=== PATIENT | male | born 1995 | race Caucasian/White ===

== ENCOUNTER 2017-08-29 15:06 | Emergency (ER) | payer BC ==
[~2017-08-29] VITALS: Ht 175.3 cm; Wt 86.6 kg
[2017-08-29 16:08] VITALS: BP 126/76
== END 2017-08-29 16:49 | disposition home or self-care (01) ==
LOC: ER 15:06
DX: S63.502A Unspecified sprain of left wrist, initial encounter (principal); S46.912A Strain of unspecified muscle, fascia and tendon at shoulder and upper arm level, left arm, initial encounter; W19.XXXA Unspecified fall, initial encounter; Y93.89 Activity, other specified; Y99.8 Other external cause status; Y92.89 Other specified places as the place of occurrence of the external cause
CPT/HCPCS: 73110